=== PATIENT | female | born 1995 | race Asian ===

== ENCOUNTER 2018-03-29 14:15 | Observation (INO) | payer BC, MEDICAID ==
[2018-03-29] MEDS ORDERED: PREN-96 PO (15:09)
[2018-03-29 17:15] LABS: Alcohol, Urine < 3.0 mg/dL (0-5); Amphetamine Screen, Urine NEGATIVE (NEGATIVE); Barbiturate Scree,Urine NEGATIVE (NEGATIVE); Benzodiazephine Screen, Urine NEGATIVE (NEGATIVE); Cannabinoid Screen, Urine NEGATIVE (NEGATIVE); Cocaine Screen, Urine NEGATIVE (NEGATIVE); Opiate Scree,Urine NEGATIVE (NEGATIVE); Phencyclidine Screen, Urine NEGATIVE (NEGATIVE)
== END 2018-03-29 17:10 | disposition home or self-care (01) | DRG 833 ==
LOC: LDRP 14:15
PROVIDERS: ADMIT Obstetrics & Gynecology; ATTEND Obstetrics & Gynecology
DX: O60.03 Preterm labor without delivery, third trimester (principal); O26.853 Spotting complicating pregnancy, third trimester; Z3A.38 38 weeks gestation of pregnancy
CPT/HCPCS: 59025; 76805; 76818; 80307; 81002; G0378

== ENCOUNTER 2018-09-18 10:02 | Emergency (ER) | payer BC, MEDICAID ==
[~2018-09-18] VITALS: Ht 157.5 cm; Wt 74.8 kg
[~2018-09-18 10:02] MED LIST: PREN-96 PO
[2018-09-18 10:31] VITALS: BP 105/62
== END 2018-09-18 10:55 | disposition home or self-care (01) ==
LOC: ER 10:02
DX: B35.4 Tinea corporis (principal)